=== PATIENT | female | born 1990 | race African-American/Black ===

== ENCOUNTER 2017-03-14 14:12 | Emergency (ER) | payer BC, OTHER ==
[2017-03-14] MEDS ORDERED: IBUPROFEN 600 MG TABLET PO ONE (14:58)
--- NOTE | 2017-03-14 15:53 | ER Document Report ---
ED Extremity Problem, Upper - General Chief Complaint: Arm Pain Stated Complaint: RIGHT ARM PAIN Time Seen by Provider: 03/14/17 14:43 Mode of Arrival: Ambulatory Information source: Patient Notes: 27-year-old female presents to ED for complain of right arm hand shoulder pain for a week. She states she has not fallen or anything but the pain is getting worse. She states she has gradual numbness from her fingers up to her shoulder. She has full range of motion. Radial pulses present. Capillary refills brisk. TRAVEL OUTSIDE OF THE [place] IN LAST 30 DAYS: No - HPI Patient complains to provider of: Pain, Arm, Forearm, Hand, Wrist, Shoulder Onset: Last week Recent injury: No Quality of pain: Throbbing, Other - Heavy Severity of pain: Mild Pain Level: 1 Associated symptoms: Tingling, Other - Heavy Exacerbated by: Movement Relieved by: Nothing Similar symptoms previously: No Recently seen / treated by doctor: No - Related Data Allergies/Adverse Reactions: No Known Drug Allergies Allergy (Verified 03/14/17 14:20) Past Medical History - General Information source: Patient - Social History Smoking Status: Never Smoker Cigarette use (# per day): No Chew tobacco use (# tins/day): No Smoking Education Provided: No Frequency of alcohol use: None Drug Abuse: Marijuana Occupation: [employer] Lives with: Parents Family History: CAD - CHF, DM, Hyperlipidemia, Hypertension Patient has suicidal ideation: No Patient has homicidal ideation: No - Past Medical History Cardiac Medical History: Reports: None Pulmonary Medical History: Reports: None EENT Medical History: Reports: None Neurological Medical History: Reports: None Endocrine Medical History: Reports: None Renal/ Medical History: Reports: None Malignancy Medical History: Reports: None GI Medical History: Reports: None Musculoskeltal Medical History: Reports Hx Musculoskeletal Trauma - Fractured ankle Skin Medical History: Reports None Psychiatric Medical History: Reports: None Traumatic Medical History: Reports: None Infectious Medical History: Reports: None Past Surgical History: Reports: Hx Oral Surgery - Immunizations Immunizations up to date: Yes Hx Diphtheria, Pertussis, Tetanus Vaccination: Yes Review of Systems - Review of Systems Constitutional: No symptoms reported EENT: No symptoms reported Cardiovascular: No symptoms reported Respiratory: No symptoms reported Gastrointestinal: No symptoms reported Genitourinary: No symptoms reported Female Genitourinary: No symptoms reported Musculoskeletal: Other - Pain from the hand to the shoulder on the right side no injuries no bruising no swelling for range of motion Skin: No symptoms reported Hematologic/Lymphatic: No symptoms reported Neurological/Psychological: No symptoms reported Physical Exam - Vital signs Vitals: Temp Pulse Resp BP Pulse Ox 98.9 F 90 16 140/94 H 99 03/14/17 14:17 03/14/17 14:17 03/14/17 14:17 03/14/17 14:17 03/14/17 14:17 Interpretation: Normal - General General appearance: Appears well, Alert - HEENT Head: Normocephalic, Atraumatic Eyes: Normal Pupils: PERRL - Respiratory Respiratory status: No respiratory distress Chest status: Nontender Breath sounds: Normal Chest palpation: Normal - Cardiovascular Rhythm: Regular Heart sounds: Normal auscultation Murmur: No - Abdominal Inspection: Normal Distension: No distension Bowel sounds: Normal Tenderness: Nontender Organomegaly: No organomegaly - Back Back: Normal, Nontender - Extremities General upper extremity: Normal inspection, Normal color, Normal ROM, Normal temperature General lower extremity: Normal inspection, Nontender, Normal color, Normal ROM , Normal temperature, Normal weight bearing. No: Dno's sign Shoulder: Tender - Complains of tenderness from the hand to the shoulder no redness no swelling no bruising for range of motion Arm: Tender Elbow: Tender Forearm: Tender Wrist: Tender Hand: Tender - Neurological Neuro grossly intact: Yes Cognition: Normal Orientation: AAOx4 [place]al[place] Coma Scale Eye Opening: Spontaneous [place] Coma Scale Verbal: Oriented [place] [employer] Coma Scale Motor: Obeys Commands [place] [employer] Coma Scale Total: 15 Speech: Normal Motor strength normal: LUE, RUE, LLE, RLE Sensory: Normal - Psychological Associated symptoms: Normal affect, Normal mood - Skin Skin Temperature: Warm Skin Moisture: Dry Skin Color: Normal Course - Re-evaluation Re-evalutation: 03/14/17 16:45 Discussed x-rays with patient written report given to patient we will apply cock -up splint to the left wrist as most of her pain is in her right hand and wrist. Patient was will be given ibuprofen and instructed to follow-up with orthopedics to follow-up this pain. No injuries noted on x-rays. - Vital Signs Vital signs: Temp Pulse Resp BP Pulse Ox 98.1 F 78 18 124/86 H 100 03/14/17 17:06 03/14/17 17:06 03/14/17 17:06 03/14/17 17:06 03/14/17 17:06 - Diagnostic Test Radiology reviewed: Image reviewed, Reports reviewed Procedures - Immobilization Right Wrist Immobilizer type: Cock-up Performed by: PCT Post-Proc Neuro Vasc Exam: Normal Alignment checked and good: Yes Discharge - Discharge Clinical Impression: Pain of right upper extremity Condition: Stable Disposition: HOME, SELF-CARE Additional Instructions: Arm Pain, Nonspecific We did not find an obvious cause for your arm pain. There's no sign of blood clot, infection, heart attack, stroke, or other serious disease. Most of the time, this type of pain goes away. If it does, no further evaluation is necessary. If pain continues or keeps coming back, we can do further testing. Possible causes of vague arm pain include muscle or joint inflammation, disc disease in the neck, pressure on the nerves and artery in the chest or armpit ("thoracic outlet syndrome"), or heart disease. Rest the arm. Pain can be eased with an antiinflammatory pain medicine such as ibuprofen. If the pain involves a small area, a heating pad might help. Call the doctor or return if the arm becomes swollen, weak, discolored, or increasingly painful, or if you develop any other significant change in your health. Ibuprofen Ibuprofen is an excellent, safe drug for pain control. In addition, it has potent antiinflammatory effects which are beneficial, especially in the treatment of injuries, arthritis, or tendonitis. It's best to take ibuprofen with food. Persons with ulcer disease or allergy to aspirin should notify their physician of this before taking ibuprofen. Take the medication exactly as prescribed. Don't take additional doses unless instructed to do so by your doctor. If you develop wheezing, shortness of breath, hives, faintness, stomach pain, vomiting, or dark black stools, return for re-evaluation at once. Carpal Tunnel Syndrome Your examination suggests carpal tunnel syndrome. This syndrome is due to pressure on a nerve in the wrist. The pressure may be caused by an old injury, hard work using the wrist, work involving repeated motions of the hand, wrist positions that keep pressure on the joint, or arthritis in the wrist. Typical symptoms are tingling, numbness, and pain in the palm, thumb, index and middle fingers, and one side of the ring finger. Often a splint, ice packs, and antiinflammatory medication make the symptoms go away. If the physician feels that your problem is chronic, you will be referred to a specialist for further care. If symptoms do not go away, carpal tunnel syndrome may require surgery. You should call the doctor if pain increases, if you develop difficulty using the thumb or fingers, or if major swelling occurs. FOLLOW-UP CARE: If you have been referred to a physician for follow-up care, call the physician s office for an appointment as you were instructed or within the next two days. If you experience worsening or a significant change in your symptoms, notify the physician immediately or return to the Emergency Department at any time for re-evaluation. Prescriptions: Ibuprofen 600 mg PO Q8HP PRN #20 tablet PRN Reason: Forms: Elevated Blood Pressure, Return to Work Referrals: LARY KHAN MD [ACTIVE STAFF] - Follow up as needed
[2017-03-14 17:37] VITALS: BP 124/86
== END 2017-03-14 17:15 | disposition home or self-care (01) ==
LOC: ER 14:12
PROC: 2W3CX1Z Immobilization of Right Lower Arm using Splint (ICD-10-PCS; principal; 2017-03-14)
DX: M79.601 Pain in right arm (principal); M25.511 Pain in right shoulder
CPT/HCPCS: 99283; 72050; 73030; 29125; L3984

== ENCOUNTER 2019-09-19 15:35 | Emergency (ER) | payer SELFPAY ==
--- NOTE | 2019-09-19 16:06 | ER Document Report ---
ED Medical Screen (RME) - General Stated Complaint: ABDOMINAL CRAMPING Time Seen by Provider: 09/19/19 16:00 TRAVEL OUTSIDE OF THE [place] IN LAST 30 DAYS: No - HPI Notes: 09/19/19 16:08 29 year old female to the ED with C/O lower abdominal cramping for over two weeks. States that she found out that she was about one month ago. States two weeks ago, she has severe cramping and lots of bleeding. She did not get seen during this bleeding. She continues to have pain and to spot. Denies any NVD, chest pain, SOB. She is a EAB 2 I performed a medical screening exam on the patient and have determined that she will need further evaluation and management by mainside provider. I have placed initial orders to help expedite her care. - Related Data Allergies/Adverse Reactions: No Known Drug Allergies Allergy (Verified 09/19/19 16:01) Past Medical History Renal/ Medical History: Denies: Hx Peritoneal Dialysis Musculoskeltal Medical History: Reports Hx Musculoskeletal Trauma - Fractured ankle Past Surgical History: Reports: Hx Oral Surgery - Immunizations Immunizations up to date: Yes Hx Diphtheria, Pertussis, Tetanus Vaccination: Yes
[2019-09-19 18:02] LABS: ABSOLUTE MONOCYTES (AUTO) 0.3 10^3/uL (0.1-1.4); BASOPHILS % (AUTO) 0.4 % (0-2); LYMPHOCYTES % (AUTO) 43.6 % (13-45); TOTAL CELLS COUNTED % (AUTO) 100 %
--- NOTE | 2019-09-19 18:06 | ER Document Report ---
ED GI/ - General Chief Complaint: Abdominal Pain Stated Complaint: ABDOMINAL CRAMPING Time Seen by Provider: 09/19/19 16:00 Primary Care Provider: LETICIA JUÁREZ MD [ACTIVE STAFF] - Follow up as needed YOON MORRIS MD [ACTIVE STAFF] - Follow up as needed Information source: Patient Notes: Ms. Olivera is a 29 yo F w/ significant past medical history presenting to the ED for abdominal pain and vaginal bleeding. Patient states that her LMP was June 23. She since had several episodes of spotting in June on July however on September 09, the patient passed some larger clots. She endorses lower abdominal cramping but no additional vaginal discharge. She states that she is no longer having any vaginal bleeding. Patient states that she took a test in June and it was positive. When she passed large clots earlier this week and then today started having ongoing abdominal cramping, the patient came in for evaluation that she was concerned something may be wrong. Patient denies any nausea, vomiting or diarrhea. She denies any fevers or chills. She denies any cough, chest pain or shortness of breath. No vaginal discharge, ongoing menstrual bleeding, dysuria, or increased urinary frequency. TRAVEL OUTSIDE OF THE [place] IN LAST 30 DAYS: No - Related Data Allergies/Adverse Reactions: No Known Drug Allergies Allergy (Verified 09/19/19 16:01) Mushrooms Adverse Reaction (Uncoded 09/19/19 16:09) Past Medical History - Social History Smoking Status: Current Every Day Smoker Chew tobacco use (# tins/day): No Frequency of alcohol use: None Drug Abuse: Marijuana Family History: CAD - CHF, DM, Hyperlipidemia, Hypertension Patient has suicidal ideation: No Patient has homicidal ideation: No Renal/ Medical History: Denies: Hx Peritoneal Dialysis Musculoskeletal Medical History: Reports Hx Musculoskeletal Trauma - Fractured ankle Past Surgical History: Reports: Hx Oral Surgery - Immunizations Immunizations up to date: Yes Hx Diphtheria, Pertussis, Tetanus Vaccination: Yes Review of Systems - Review of Systems Constitutional: See HPI EENT: No symptoms reported Cardiovascular: No symptoms reported Respiratory: No symptoms reported Gastrointestinal: No symptoms reported Genitourinary: See HPI Female Genitourinary: See HPI Musculoskeletal: No symptoms reported Skin: No symptoms reported Hematologic/Lymphatic: No symptoms reported Neurological/Psychological: No symptoms reported Physical Exam - Vital signs Vitals: Temp Pulse Resp BP Pulse Ox 98.4 F 82 16 126/84 H 100 09/19/19 17:18 09/19/19 17:18 09/19/19 17:18 09/19/19 17:18 09/19/19 17:18 Interpretation: Normal - General General appearance: Appears well, Alert - HEENT Head: Normocephalic, Atraumatic Eyes: Normal Pupils: PERRL - Respiratory Respiratory status: No respiratory distress Chest status: Nontender Breath sounds: Normal Chest palpation: Normal - Cardiovascular Rhythm: Regular Heart sounds: Normal auscultation Murmur: No - Abdominal Inspection: Normal Distension: No distension Bowel sounds: Normal Tenderness: Nontender Organomegaly: No organomegaly - Back Back: Normal, Nontender - Extremities General upper extremity: Normal inspection, Nontender, Normal color, Normal ROM, Normal temperature General lower extremity: Normal inspection, Nontender, Normal color, Normal ROM, Normal temperature, Normal weight bearing. No: Don's sign - Neurological Neuro grossly intact: Yes Cognition: Normal Orientation: AAOx4 Jalil Coma Scale Eye Opening: Spontaneous [place] Coma Scale Verbal: Oriented [place] Coma Scale Motor: Obeys Commands [place] Coma Scale Total: 15 Speech: Normal Motor strength normal: LUE, RUE, LLE, RLE Sensory: Normal - Psychological Associated symptoms: Normal affect, Normal mood - Skin Skin Temperature: Warm Skin Moisture: Dry Skin Color: Normal Course - Re-evaluation Re-evalutation: Patient is generally well-appearing and nontoxic. Initial vitals within normal limits. Differential diagnosis includes normal first trimester bleeding, IUP, ectopic , incomplete miscarriage, asymptomatic bacteriuria in . 09/19/19 18:05 I attempted to evaluate the patient however she was in ultrasound. Will reassess in a few minutes. 09/19/19 18:45 CBC and CMP within normal limits. UA negative for infection or asymptomatic bacteriuria. Beta hCG is low at 73. Given that the patient has been since June, it is likely that the large clots that she passed in August were parts. Ultrasound does not show evidence of an IUP. No evidence of retained products or ectopic . Likely the patient had a miscarriage. Patient updated with this information. She was instructed to follow-up with OB. Patient given OB mirror fabrication supervisor and given return precautions. - Vital Signs Vital signs: Temp Pulse Resp BP Pulse Ox 98.5 F 82 18 141/88 H 100 09/19/19 20:02 09/19/19 17:18 09/19/19 20:02 09/19/19 20:02 09/19/19 17:18 - Laboratory Result Diagrams: 09/19/19 17:35 09/19/19 17:35 Laboratory results interpreted by me: 09/19/19 09/19/19 09/19/19 17:35 17:35 17:35 WBC 3.1 L RDW 14.1 H Absolute Neuts (auto) 1.4 L Beta HCG, Quant 73.64 H Urine HCG, Qual POSITIVE H Discharge - Discharge Clinical Impression: Miscarriage Condition: Good Disposition: HOME, SELF-CARE Instructions: Miscarriage ([facility]) Additional Instructions: I would recommend that you either return to the ED for repeat beta-hCG or follow-up with an SCIENTIFIC ADVISOR. The repeat beta-hCG is to be repeated in 48 hours or 2 days. You can use Tylenol as needed for abdominal cramping. If you develop significantly worsening abdominal pain, significant vaginal bleeding, or any other concerning symptoms, please return to the ED for further evaluation. Referrals: YOON MORRIS MD [ACTIVE STAFF] - Follow up as needed LETICIA JUÁREZ MD [ACTIVE STAFF] - Follow up as needed
[2019-09-19 18:09] LABS: ABSOLUTE LYMPHOCYTES (AUTO) 1.3 10^3/uL (0.5-4.7); ABSOLUTE NEUT (AUTO) 1.4 10^3/uL (1.7-8.2); EOSINOPHILS % (AUTO) 1.2 % (0-6); HEMATOCRIT 36.2 % (36.0-47.0); HEMOGLOBIN 12.2 g/dL (12.0-15.5); MEAN CORPUSCULAR HEMOGLOBIN 31.8 pg (27.0-33.4); MEAN CORPUSCULAR HGB CONC 33.7 g/dL (32.0-36.0); MEAN CORPUSCULAR VOLUME 94 fl (80-97); MONOCYTES % (AUTO) 8.8 % (3-13); PLATELET COUNT 186 10^3/uL (150-450); RED BLOOD COUNT 3.84 10^6/uL (3.72-5.28); RED CELL DISTRIBUTION WIDTH 14.1 % (11.5-14.0); WHITE BLOOD COUNT 3.1 10^3/uL (4.0-10.5)
[2019-09-19 18:21] LABS: ALBUMIN 4.5 g/dL (3.5-5.0); ALKALINE PHOSPHATASE 52 U/L (38-126); ANION GAP 8 (5-19); ASPARTATE AMINO TRANSFERASE 24 U/L (14-36); BILIRUBIN,DIRECT 0.1 mg/dL (0.0-0.4); BILIRUBIN,TOTAL 0.4 mg/dL (0.2-1.3); BLOOD UREA NITROGEN 12 mg/dL (7-20); CALCIUM 9.2 mg/dL (8.4-10.2); CARBON DIOXIDE 27 mmol/L (22-30); CHLORIDE 105 mmol/L (98-107); GLUCOSE 78 mg/dL (75-110); TOTAL PROTEIN 8.2 g/dL (6.3-8.2)
--- NOTE | 2019-09-19 18:23 | RADIOLOGY REPORT (SQ) ---
EXAM DESCRIPTION: U/S NON OB PEL TV W/DOPPLER COMPLETED DATE/TIME: 09/19/2019 6:03 pm REASON FOR STUDY: lower abd pain, possible retained POC, SPAB 2w ago LMP 06/23/2019 COMPARISON: None. TECHNIQUE: Dynamic and static grayscale images acquired of the pelvis via transvaginal approach and recorded on PACS. Additional selected color Doppler and spectral images recorded. LIMITATIONS: None. FINDINGS: UTERUS: Contour normal. No mass. ENDOMETRIAL STRIPE: No focal or generalized thickening. No masses. CERVIX: 2 cm. No nabothian cysts. RIGHT OVARY AND DOPPLER: No ovary not seen. LEFT OVARY AND DOPPLER: Normal size. No worrisome masses. Normal arterial vascular flow without evide nce for torsion. FREE FLUID: None noted. OTHER: No other significant finding. MEASUREMENTS: UTERUS: 7.5 x 4.7 x 3.8 cm. ENDOMETRIAL STRIPE: 3 mm. RIGHT OVARY: Not seen. LEFT OVARY: 3.3 x 2.9 x 1.8 cm. IMPRESSION: NORMAL TRANSVAGINAL PELVIC ULTRASOUND. TECHNICAL DOCUMENTATION: JOB ID: [id number] [email or web address] Rights [email or web address] Rev-03/16 Reading location - IP/workstation name: [email or web address]
[2019-09-19 18:33] LABS: APPEARANCE,URINE SLIGHTLY-CLOUDY; BILIRUBIN,URINE NEGATIVE (NEGATIVE); COLOR,URINE YELLOW; GLUCOSE, URINE NEGATIVE (NEGATIVE); KETONES,URINE NEGATIVE (NEGATIVE); PROTEIN,URINE NEGATIVE (NEGATIVE); URINE SPECIFIC GRAVITY 1.024; UROBILINOGEN,URINE NEGATIVE mg/dL (<2.0)
[2019-09-19 20:03] VITALS: BP 141/88
== END 2019-09-19 20:10 | disposition home or self-care (01) ==
LOC: ER 15:35 → EEVIPCON 15:35 → ER 20:10
DX: O03.9 Complete or unspecified spontaneous abortion without complication (principal); R10.30 Lower abdominal pain, unspecified; F17.200 Nicotine dependence, unspecified, uncomplicated
CPT/HCPCS: 36415; 76830; 80053; 81001; 81025; 84702; 85025; 86900; 86901; 93976; 99284